=== PATIENT | male | born 2000 | race Caucasian/White ===

== ENCOUNTER 2023-10-14 10:20 | Outpatient (OUT) | payer OTHER, SELFPAY ==
[2023-10-14 12:03] LABS: Estimated Average Glucose 103 mg/dL; Glycohemoglobin A1C 5.2 % (4.5-6.2)
[2023-10-14 12:06] LABS: Chol HDL Ratio 3.5; Cholesterol 148 mg/dL (<=200); HDL Cholesterol 42 mg/dL (40-60); LDL Cholesterol Calculated 97.2 mg/dL; Thyroid Stimulating Hormone 3.294 uIU/mL (0.358-3.740); Triglycerides 44 mg/dL (<=150); VLDL CHOLESTEROL 8.8 mg/dL
== END 2023-10-14 10:21 | disposition home or self-care (01) ==
LOC: LAB 10:24
PROVIDERS: Family Provider Family Medicine; PCP Family Medicine; Visit Provider Family Medicine
DX: E66.01 Morbid (severe) obesity due to excess calories (principal); Z83.3 Family history of diabetes mellitus
CPT/HCPCS: 36415; 80061; 83036; 84436; 84443